=== PATIENT | female | born 1965 | race Caucasian/White ===

== ENCOUNTER 2017-09-26 10:41 | Day surgery (SDC) | payer OTHER ==
[~2017-09-26] VITALS: Ht 160 cm; Wt 70.0 kg
[~2017-09-26 10:41] MED LIST: ACEBUTCAFT PO; ALPHA LIPOIC A200 M1 PO; CYCL10 PO; D3-20002000 UNIT PO; Endometrin100 MG VG; FISH1000 PO; HYDACE5325 PO; Hair, Skin & N1 EACH PO; PROC10 PO; UBID100 PO; WP THYROID PO
== END 2017-09-26 15:10 | disposition home or self-care (01) ==
LOC: ORSCSDS 10:41
PROVIDERS: Orthopaedic Surgery
PROC: 0LC Tendons, Extirpation (ICD-10-PCS; principal; 2017-09-26 12:00)
DX: M77.11 Lateral epicondylitis, right elbow (principal); Z87.891 Personal history of nicotine dependence
CPT/HCPCS: J2250; J3010; J7120

== ENCOUNTER 2022-12-06 12:24 | Emergency (ER) | payer OTHER ==
[~2022-12-06] VITALS: Ht 160 cm; Wt 73.5 kg
[2022-12-06 14:22] LABS: Source, Urine Clean Catch
[2022-12-06 14:37] LABS: Appearance, Urine Clear (Clear); Bilirubin, Urine Neg (Neg); Blood, Urine 2+ (Neg); Glucose Qualitative, Urine Neg (Neg); Ketones, Urine Neg (Neg); Leukocyte Esterase, Urine 2+ (Neg); Nitrite, Urine Neg (Neg); Protein, Urine Neg (Neg); Urobilinogen, Urine NORM (Normal)
[2022-12-06 14:38] LABS: Color, Urine Pale Yellow (P-Yellow)
[2022-12-06 14:39] LABS: Bacteria Few /hpf; Squamous Epithelial Cells Few /hpf (Few)
[2022-12-06] MEDS ORDERED: CLOTRIMAZOLE 321 GM VAG (15:14)
[2022-12-06 15:21] VITALS: BP 121/75
== END 2022-12-06 15:22 | disposition home or self-care (01) ==
LOC: ER 12:24
PROVIDERS: Physician Assistant
DX: B37.31 Acute candidiasis of vulva and vagina (principal); Z88.0 Allergy status to penicillin; Z88.5 Allergy status to narcotic agent; Z88.6 Allergy status to analgesic agent; Z79.899 Other long term (current) drug therapy; Z87.891 Personal history of nicotine dependence
CPT/HCPCS: 81001; 87070; 87086; 87205; 99282

== ENCOUNTER → 2023-11-21 | Outpatient (CLI) | payer OTHER ==
[~2023-11-21] MED LIST changes: +CLOTRIMAZOLE 321 GM VAG
[2023-11-21 12:38] LABS: BASOPHILS ABSOLUTE AUTO 0.09 K/mm3 (0.00-0.23); BASOPHILS PERCENT AUTO 1 % (0-2); EOSINOPHILS ABSOLUTE AUTO 0.18 K/mm3 (0.00-0.68); EOSINOPHILS PERCENT AUTO 2 % (0-6); Hemoglobin 13.8 g/dL (11.5-16.0); IMMATURE GRAN ABSOLUTE AUTO 0.03 K/mm3 (0.00-0.10); IMMATURE GRAN PERCENT AUTO 0 % (0-1); LYMPHOCYTES ABSOLUTE AUTO 2.77 K/mm3 (0.84-5.20); LYMPHOCYTES PERCENT AUTO 29 % (21-46); MONOCYTES ABSOLUTE AUTO 0.73 K/mm3 (0.16-1.47); MONOCYTES PERCENT AUTO 8 % (4-13); Mean Corpuscular HGB 29.1 pg (26.0-34.0); Mean Corpuscular HGB Conc 33.7 g/dL (31.5-36.5); Mean Corpuscular Volume 86 fL (80-100); Mean Platelet Volume 10.1 fL (9.1-12.4); NEUTROPHILS ABSOLUTE AUTO 5.77 K/mm3 (1.96-9.15); NEUTROPHILS PERCENT AUTO 60 % (41-73); Platelet Count 394 K/mm3 (150-400); RDW Coefficient Variation 12.3 % (11.7-14.2); RDW Standard Deviation 38.9 fL (35.1-46.3); Red Blood Cell Count 4.75 M/mm3 (3.80-5.20); White Blood Cell Count 9.57 K/mm3 (4.00-11.30)
[2023-11-21 12:58] LABS: Albumin, Blood 3.3 g/dL (3.4-5.0); Albumin/Globulin Ratio 0.7 (0.8-1.8); Bilirubin, Total 0.3 mg/dL (0.1-1.0); Bun/Creatinine Ratio 10.8 (12.0-20.0); Calcium, Blood 9.4 mg/dL (8.5-10.1); Creatinine, Blood 0.74 mg/dL (0.40-1.00); Globulin, Blood 4.5 g/dL (2.2-4.0); Potassium, Blood 3.8 mmol/L (3.5-5.5); Total Protein, Blood 7.8 g/dL (6.4-8.2)
== END | disposition home or self-care (01) ==
LOC: LAB SHORT 12:33 → LAB 12:33
PROVIDERS: Chiropractor
DX: R10.9 Unspecified abdominal pain (principal)
CPT/HCPCS: 80053; 83690; 85025

== ENCOUNTER → 2023-12-11 | Outpatient (CLI) | payer OTHER | LOC: LAB 13:54 → LAB SHORT 13:54 | DX: N39.0 Urinary tract infection, site not specified (principal) | CPT/HCPCS: 87086 ==